=== PATIENT | female | born 1965 | race African-American/Black ===

== ENCOUNTER 2018-05-15 06:04 | Inpatient (IN) | payer BC ==
[2018-05-15] MEDS ORDERED: NEOSTIGMINE 10 MG INJ (07:00)
[2018-05-15] MEDS ORDERED: DESFLURANE 15 MIN (07:00)
[2018-05-15] MEDS ORDERED: CEFAZOLIN 1 GM INJ (07:41)
[2018-05-15] MEDS ORDERED: PROPOFOL 20 ML (07:41)
[2018-05-15] MEDS ORDERED: GLYCOPYRROLATE 0.4 MG INJ (07:41)
[2018-05-15] MEDS ORDERED: ROCURONIUM 50 MG INJ (07:41)
[2018-05-15] MEDS ORDERED: MIDAZOLAM 1 MG/ML 2 ML INJ (07:43)
[2018-05-15] MEDS ORDERED: FENTAnyl 50 MCG/ML VIAL (07:43)
[2018-05-15] MEDS ORDERED: DEXAMETHASONE 4 MG/ML 5 ML INJ (07:44)
[2018-05-15] MEDS ORDERED: ONDANSETRON 4 MG INJ (07:44)
[2018-05-15] MEDS ORDERED: morphine SULFATE/PF (10 MG/10 ML) INJ (07:49)
[2018-05-15] MEDS ORDERED: NALOXONE (0.4 MG/ML) INJ IV (08:30)
[2018-05-15] MEDS ORDERED: OXYCODONE/ACETAMINOPHEN (5/325) TAB PO ×2 (08:30)
[2018-05-15] MEDS ORDERED: IPRATROPIUM (NEB) 0.5 MG/2.5 ML AMP HHN (08:30)
[2018-05-15] MEDS ORDERED: ONDANSETRON 4 MG INJ IV (08:30)
[2018-05-15] MEDS ORDERED: hydrALAzine 20 MG INJ IV (08:30)
[2018-05-15] MEDS ORDERED: MEPERIDINE 25 MG INJ IV (08:30)
[2018-05-15] MEDS ORDERED: NALBUPHINE HCL (10 MG/1 ML) INJ IV (08:30)
[2018-05-15] MEDS ORDERED: EPHEDrine SULFATE 50 MG/5 ML SYG IV (08:30)
[2018-05-15] MEDS ORDERED: ALBUTEROL 0.083% (NEB) 2.5 MG/3 ML AMP HHN (08:30)
[2018-05-15] MEDS ORDERED: ZOLPIDEM 5 MG TAB PO (08:30)
[2018-05-15] MEDS ORDERED: LABETALOL HCL 20MG INJ IV (08:30)
[2018-05-15] MEDS ORDERED: DIPHENHYDRAMINE 50 MG INJ IV ×2 (08:30)
[2018-05-15] MEDS ORDERED: HYDROmorphONE 1 MG/5 ML IV SYRINGE IV ×3 (08:30)
[2018-05-15] MEDS ORDERED: MIDAZOLAM 1 MG/ML 2 ML INJ IV (08:30)
[2018-05-15] MEDS ORDERED: FENTAnyl 50 MCG/ML VIAL IV ×3 (08:30)
[2018-05-15] MEDS ORDERED: TRIMETHOBENZAMIDE 100 MG/ML VIAL IM ×2 (08:30)
[2018-05-15] MEDS: LACTATED RINGER'S 1,000 ML IV* ×2 (11:32→15:00)
[2018-05-15] MEDS: KETOROLAC 30 MG INJ IV ×2 (11:36→20:47)
[2018-05-15] MEDS: ONDANSETRON 4 MG INJ IV ×2 (12:32→20:47)
[2018-05-15] MEDS: CEFAZOLIN 2 GM/50 ML (PMX) 50 ML IVPB (12:42)
[2018-05-15] MEDS: morphine 2 MG INJ IV (18:40)
[2018-05-16] MEDS: morphine 2 MG INJ IV ×2 (00:23→07:33)
[2018-05-16] MEDS: LACTATED RINGER'S 1,000 ML IV* ×4 (02:41→18:53)
[2018-05-16] MEDS: ONDANSETRON 4 MG INJ IV (07:33)
[2018-05-16] MEDS ORDERED: ONDANSETRON 4 MG INJ IV (08:30)
[2018-05-16] MEDS: morphine 4 MG/ML VIAL IV (11:34)
[2018-05-16] MEDS: IBUPROFEN 800 MG TAB PO ×2 (14:07→22:00)
[2018-05-16] MEDS ORDERED: HYDROCODONE/APAP (5/325) TAB PO (15:30)
[2018-05-16] MEDS: HYDROCODONE/APAP (5/325) TAB PO ×2 (15:50→19:42)
[2018-05-16 22:03] LABS: ADD MAN DIFF? NO
[2018-05-16 22:09] LABS: BASOPHILS % 0.2 % (0.0-2.0); HEMATOCRIT 32.3 % (37.0-47.0); HEMOGLOBIN 10.8 g/dl (12.0-16.0); LYMPHOCYTES % 8.9 % (15.0-51.0); MEAN CORPUSCULAR HEMOGLOBIN 26.5 pg (29.0-33.0); MEAN CORPUSCULAR HGB CONC 33.4 g/dl (32.0-37.0); MEAN CORPUSCULAR VOLUME 79.2 fl (82.0-101.0); MEAN PLATELET VOLUME 11.7 fl (7.4-10.4); MONOCYTE # 1.1 10^3/ul (0.3-0.9); MONOCYTES % 9.5 % (0.0-11.0); NEUTROPHIL # 9.3 10^3/ul (1.6-7.5); NEUTROPHILS % 80.8 % (39.0-77.0); PLATELET COUNT 200 10^3/UL (140-415); RED BLOOD COUNT 4.08 10^6/ul (4.20-5.40); RED CELL DISTRIBUTION WIDTH 14.6 % (11.5-14.5)
[2018-05-16 22:09] LABS: WHITE BLOOD COUNT 11.5 10^3/ul (4.8-10.8)
[2018-05-16 22:27] LABS: ALANINE AMINOTRANSFERASE 8 IU/L (13-69); ALBUMIN 3.5 g/dl (3.3-4.9); ALBUMIN/GLOBULIN RATIO 1.06; ALKALINE PHOSPHATASE 50 IU/L (42-121); ANION GAP 6 (5-13); ASPARTATE AMINO TRANSFERASE 20 IU/L (15-46); BILIRUBIN,INDIRECT 0.7 mg/dl (0-1.1); BILIRUBIN,TOTAL 0.7 mg/dl (0.2-1.3); BLOOD UREA NITROGEN 8 mg/dl (7-20); CALCIUM 8.7 mg/dl (8.4-10.2); CARBON DIOXIDE 28 mmol/L (21-31); CHLORIDE 105 mmol/L (97-110); CREATININE 0.81 mg/dl (0.44-1.00); Estimated GFR > 60 mL/min (>60); GLUCOSE 116 mg/dl (70-220); POTASSIUM 3.9 mmol/L (3.5-5.1); SODIUM 139 mmol/L (135-144); TOTAL PROTEIN 6.8 g/dl (6.1-8.1)
[2018-05-17] MEDS: HYDROCODONE/APAP (5/325) TAB PO ×4 (00:52→19:09)
[2018-05-17] MEDS: LACTATED RINGER'S 1,000 ML IV* ×3 (03:41→22:05)
[2018-05-17] MEDS: IBUPROFEN 800 MG TAB PO ×3 (06:12→22:04)
[2018-05-17 17:50] LABS: ADD UMIC YES; UR ASCORBIC ACID NEGATIVE (NEGATIVE); UR BILIRUBIN (Dip) NEGATIVE (NEGATIVE); UR BLOOD (Dip) NEGATIVE (NEGATIVE); UR CLARITY CLEAR (CLEAR); UR COLOR STRAW (YELLOW); UR GLUCOSE (Dip) NEGATIVE (NEGATIVE); UR KETONES (Dip) TRACE mg/dL (NEGATIVE); UR LEUKOCYTE ESTERASE (Dip) TRACE Leu/ul (NEGATIVE); UR NITRITE (Dip) NEGATIVE (NEGATIVE); UR RBC 1 /HPF (0-5); UR SPECIFIC GRAVITY (Dip) 1.005 (1.003-1.030); UR TOTAL PROTEIN (Dip) NEGATIVE (NEGATIVE); UR UROBILINOGEN (Dip) NEGATIVE (NEGATIVE); UR WBC 1 /HPF (0-5)
[2018-05-18] MEDS: HYDROCODONE/APAP (5/325) TAB PO ×4 (05:46→18:01)
[2018-05-18] MEDS: LACTATED RINGER'S 1,000 ML IV* ×2 (05:47→13:46)
[2018-05-18] MEDS: IBUPROFEN 800 MG TAB PO ×2 (06:52→14:55)
== END 2018-05-18 18:24 | disposition home or self-care (01) | DRG 743 ==
LOC: REC 06:04 → MS1 10:42
PROC: 0UT90ZL Resection of Uterus, Supracervical, Open Approach (ICD-10-PCS; principal; 2018-05-15 07:30)
PROC: 0UT20ZZ Resection of Bilateral Ovaries, Open Approach (ICD-10-PCS; 2018-05-15 07:30)
PROC: 0UT70ZZ Resection of Bilateral Fallopian Tubes, Open Approach (ICD-10-PCS; 2018-05-15 07:30)
PROC: 0UN70ZZ Release Bilateral Fallopian Tubes, Open Approach (ICD-10-PCS; 2018-05-15 07:30)
PROC: 0UN90ZZ Release Uterus, Open Approach (ICD-10-PCS; 2018-05-15 07:30)
PROC: 0UN20ZZ Release Bilateral Ovaries, Open Approach (ICD-10-PCS; 2018-05-15 07:30)
DX: D25.1 Intramural leiomyoma of uterus (principal); D25.2 Subserosal leiomyoma of uterus; N73.6 Female pelvic peritoneal adhesions (postinfective); I10 Essential (primary) hypertension; I25.119 Atherosclerotic heart disease of native coronary artery with unspecified angina pectoris; F32.9 Major depressive disorder, single episode, unspecified; F41.9 Anxiety disorder, unspecified
CPT/HCPCS: 80053; 81001; 85025; 86850; 86900; 86901; 86920; 87086; 88305